=== PATIENT | male | born 1955 | race Caucasian/White ===

== ENCOUNTER 2018-12-06 21:10 | Emergency (ER) | payer OTHER ==
[~2018-12-06] VITALS: Ht 170.2 cm; Wt 76.2 kg
[2018-12-06 21:32] LABS: BASOPHILS ABSOLUTE AUTO 0.12 K/mm3 (0.00-0.23); BASOPHILS PERCENT AUTO 1 % (0-2); EOSINOPHILS ABSOLUTE AUTO 0.28 K/mm3 (0.00-0.68); EOSINOPHILS PERCENT AUTO 2 % (0-6); Hematocrit 35.6 % (37.0-53.0); IMMATURE GRAN ABSOLUTE AUTO 0.05 K/mm3 (0.00-0.10); IMMATURE GRAN PERCENT AUTO 0 % (0-1); LYMPHOCYTES ABSOLUTE AUTO 3.54 K/mm3 (0.84-5.20); LYMPHOCYTES PERCENT AUTO 25 % (21-46); MONOCYTES ABSOLUTE AUTO 1.63 K/mm3 (0.16-1.47); MONOCYTES PERCENT AUTO 11 % (4-13); Mean Corpuscular HGB 21.6 pg (26.0-34.0); Mean Corpuscular HGB Conc 30.9 g/dL (31.5-36.5); Mean Corpuscular Volume 70 fL (80-100); Mean Platelet Volume 10.4 fL (9.1-12.4); NEUTROPHILS ABSOLUTE AUTO 8.74 K/mm3 (1.96-9.15); NEUTROPHILS PERCENT AUTO 61 % (41-73); Platelet Count 523 K/mm3 (150-400); RDW Coefficient Variation 18.2 % (11.7-14.2); RDW Standard Deviation 43.8 fL (35.1-46.3); Red Blood Cell Count 5.09 M/mm3 (4.30-5.90); White Blood Cell Count 14.36 K/mm3 (4.00-11.30)
[2018-12-06 21:48] LABS: Alanine Aminotransfer (ALT/SGP 21 U/L (12-78); Albumin, Blood 4.2 g/dL (3.4-5.0); Albumin/Globulin Ratio 0.9 (0.8-1.8); Alk Phos 161 U/L (50-136); Anion Gap 10 mmol/L (6-16); Aspartate Aminotrans (AST/SGOT 9 U/L (12-37); Bilirubin, Total 0.4 mg/dL (0.1-1.0); Blood Urea Nitrogen 48 mg/dL (8-24); CO2, Blood 25 mmol/L (21-32); Calcium, Blood 9.1 mg/dL (8.5-10.1); Chloride, Blood 93 mmol/L (98-108); Creatinine, Blood 1.37 mg/dL (0.60-1.20); Globulin, Blood 4.5 g/dL (2.2-4.0); Glomerular Filtration Rate 56 (60-); Glucose, Blood 428 mg/dL (70-99); Sodium, Blood 128 mmol/L (136-145); Total Protein, Blood 8.7 g/dL (6.4-8.2); Troponin I <0.015 ng/mL (0.000-0.040)
[2018-12-06] MEDS ORDERED: Novolin R100 UNIT/M SC (23:46)
[2018-12-06] MEDS ORDERED: METF500 PO (23:46)
== END 2018-12-06 23:54 | disposition home or self-care (01) ==
LOC: ER 21:10 → EDBD 21:10 → ER 23:54
PROVIDERS: Emergency Medicine
DX: G89.29 Other chronic pain (principal); M54.2 Cervicalgia; Z88.2 Allergy status to sulfonamides; Z88.8 Allergy status to other drugs, medicaments and biological substances
CPT/HCPCS: 71046; 72040; 80053; 84484; 85025; 93005; 93010; 96374; 99284-25; J1170

== ENCOUNTER 2019-11-25 15:06 | Inpatient (IN) | payer OTHER ==
[~2019-11-25] VITALS: Ht 170.2 cm; Wt 80.9 kg
[~2019-11-25 15:06] MED LIST: METF500 PO; Novolin R100 UNIT/M SC
[2019-11-25 15:51] LABS: BASOPHILS ABSOLUTE AUTO 0.09 K/mm3 (0.00-0.23); BASOPHILS PERCENT AUTO 0 % (0-2); EOSINOPHILS ABSOLUTE AUTO 0.01 K/mm3 (0.00-0.68); EOSINOPHILS PERCENT AUTO 0 % (0-6); Hematocrit 38.1 % (37.0-53.0); Hemoglobin 12.4 g/dL (13.5-17.5); IMMATURE GRAN ABSOLUTE AUTO 0.11 K/mm3 (0.00-0.10); IMMATURE GRAN PERCENT AUTO 1 % (0-1); LYMPHOCYTES ABSOLUTE AUTO 1.77 K/mm3 (0.84-5.20); LYMPHOCYTES PERCENT AUTO 8 % (21-46); MONOCYTES ABSOLUTE AUTO 0.41 K/mm3 (0.16-1.47); MONOCYTES PERCENT AUTO 2 % (4-13); Mean Corpuscular HGB 26.3 pg (26.0-34.0); Mean Corpuscular HGB Conc 32.5 g/dL (31.5-36.5); Mean Corpuscular Volume 81 fL (80-100); Mean Platelet Volume 10.7 fL (9.1-12.4); NEUTROPHILS ABSOLUTE AUTO 19.06 K/mm3 (1.96-9.15); NEUTROPHILS PERCENT AUTO 89 % (41-73); Platelet Count 356 K/mm3 (150-400); RDW Coefficient Variation 16.9 % (11.7-14.2); RDW Standard Deviation 50.1 fL (35.1-46.3); Red Blood Cell Count 4.72 M/mm3 (4.30-5.90); White Blood Cell Count 21.45 K/mm3 (4.00-11.30)
[2019-11-25 16:09] LABS: Alanine Aminotransfer (ALT/SGP 21 U/L (12-78); Albumin, Blood 3.9 g/dL (3.4-5.0); Albumin/Globulin Ratio 0.8 (0.8-1.8); Alk Phos 129 U/L (50-136); Anion Gap 8 mmol/L (6-16); Aspartate Aminotrans (AST/SGOT 20 U/L (12-37); Bilirubin, Total 0.3 mg/dL (0.1-1.0); Blood Urea Nitrogen 17 mg/dL (8-24); Bun/Creatinine Ratio 23.9 (12.0-20.0); CO2, Blood 26 mmol/L (21-32); Calcium, Blood 9.6 mg/dL (8.5-10.1); Chloride, Blood 100 mmol/L (98-108); Creatinine, Blood 0.71 mg/dL (0.60-1.20); Globulin, Blood 4.8 g/dL (2.2-4.0); Glomerular Filtration Rate >60 (60-); Glucose, Blood 188 mg/dL (70-99); Potassium, Blood 3.5 mmol/L (3.5-5.5); Sodium, Blood 134 mmol/L (136-145); Total Protein, Blood 8.7 g/dL (6.4-8.2); Troponin I <0.015 ng/mL (0.000-0.040)
[2019-11-25] MEDS ORDERED: SERT100 PO (20:53)
[2019-11-25] MEDS ORDERED: ALLO100 PO (20:53)
[2019-11-25] MEDS ORDERED: SENN187 PO (20:54)
[2019-11-25] MEDS ORDERED: ATOR20 PO (20:59)
[2019-11-25] MEDS ORDERED: CLON.1 PO (21:00)
[2019-11-25] MEDS ORDERED: OMEP20ER PO (21:01)
[2019-11-25] MEDS ORDERED: NIFE90ER PO (21:01)
[2019-11-25] MEDS ORDERED: PRAM.5 PO (21:02)
[2019-11-25] MEDS ORDERED: LOSA50 PO (21:04)
[2019-11-25] MEDS ORDERED: NOVOLOG100 UNIT/2 SC (21:06)
[2019-11-25] MEDS ORDERED: OZEMPIC1 MG/0.71 SC (21:09)
[2019-11-25] MEDS ORDERED: IBUP800 PO (21:10)
[2019-11-25] MEDS ORDERED: SUBOXONE 8 MG-1 EACH SL (21:11)
[2019-11-25] MEDS ORDERED: HYDHCL25 PO (21:13)
[2019-11-25] MEDS ORDERED: POTA10T PO (21:14)
[2019-11-25] MEDS ORDERED: FURO20 PO ×2 (21:15)
[2019-11-25] MEDS ORDERED: PREG150 PO (21:16)
[2019-11-25] MEDS ORDERED: BASAGLAR K100 UNIT/1 SC (21:18)
[2019-11-25] MEDS ORDERED: ONDA4 PO (21:19)
[2019-11-25] MEDS ORDERED: METF500 PO (21:20)
[2019-11-25] MEDS ORDERED: ASPI81CH PO (21:21)
[2019-11-25] MEDS ORDERED: Metoprolol Tar100 MG PO (21:22)
--- NOTE | 2019-11-26 00:35 | NUR ---
MED FLOOR SUMMARY REPORT RECIEVED FROM APPLIQUER. CONCERNS OF BP WAS EXPLAINED THAT PT IS IN PAIN AND ANXIOUS. THE GOAL WAS TO CONTROL PT PAIN AND ANXIETY W/ DECREASE IN BP. PT ARRIVED TO FLOOR IN OBVIOUS DISCOMFORT. PROVIDER CALLED AND NEW ORDER OF MS AND ATIVAN WAS GIVEN. PT MEDICATED PER ORDER AND HAD SOME RELIEF. PT CONTINUED TO HAVE URGE TO HAVE BM W/ NO PRODUCTION. PT EXPERIENCED DRY HEAVES W/ NO EMESIS. CRITICAL LAB WAS CALLED FOR LATIC INCREASE. PROVIDER CALLED AND NOTED THE INCREASE. PT RECIEVED SEPSIS PROTOCOL FLUIDS IN ER AND STARTED ON NS INFUSION. PT CONTINUED TO HAVE HTN DESPITE PAIN MEDS, ATIVAN AND APRESOLINE. PROVIDER CALLED AND ORDERED PT PLACED ON TELE AND IV LOPRESSOR TO BE GIVEN. PT CONTINUED TO HAVE SBP >200 AND PROVIDER ORDERED PT TRANSFER TO ICU. REPORT CALLED TO Valerie RANDOLPH RN.
--- NOTE | 2019-11-26 01:44 | NUR ---
ASSUMED CARE NOTE: ASSUMED CARE OF PT AT 0034, RECEVIED REPORT FROM [facility] RN. PT WAS TRANSFERED TO ICU DUE TO SBP OVER 200. PT IS ALERT AND ORIENTEDX2, VERY FORGETFUL AT TIMES. FIGITIY IN BED, STATING HE IS IN 10/10 PAIN, GENERAL. PAIN MEDS GIVEN PER ORDER. PT CRYING OUT. PT IS IN SINUS TACH, WITH HR IN THE 120'S. PT ON RA WITH SPO2 94% NITROPRESS STARTED AT 0038, TITRATED UP TO 3.5MCG/KG/MIN AT THIS TIME. SBP AT 198. CALLED REGARDING PAIN LEVEL AND BEHAVIOR. ORDERS GIVEN.
[2019-11-26 01:47] LABS: Source, Urine Voided
[2019-11-26 01:52] LABS: Bilirubin, Urine Neg (Neg); Blood, Urine 3+ (Neg); Glucose Qualitative, Urine 4+ (Neg); Ketones, Urine 2+ (Neg); Leukocyte Esterase, Urine Neg (Neg); Nitrite, Urine Neg (Neg); Protein, Urine 4+ (Neg); Specific Gravity, Urine 1.015 (1.003-1.022); Urobilinogen, Urine NORM (Normal)
[2019-11-26 01:53] LABS: Color, Urine Pale Yellow (P-Yellow)
[2019-11-26 01:54] LABS: Appearance, Urine Clear (Clear)
[2019-11-26 01:59] LABS: Bacteria Rare /hpf; Red Blood Cells, Urine 0-2 /hpf (0-2); Squamous Epithelial Cells Not Seen /hpf (Few); White Blood Cells, Urine Not Seen /hpf (0-5)
[2019-11-26 02:01] LABS: U Amphetamine Screen Not Detected; U Barbituate Screen Not Detected; U Benzodiazapine Screen DETECTED; U Buprenorphine Screen Not Detected; U Cannabinoids Screen Not Detected; U Cocaine Screen Not Detected; U Methadone Screen Not Detected; U Methamphetamine Screen Not Detected; U Opiates Screen DETECTED; U Oxycodone Screen Not Detected; U Phencyclidine Screen Not Detected; U Propoxyphene Screen Not Detected
--- NOTE | 2019-11-26 02:37 | NUR ---
UPDATE: NITROPRESS AT 4.5MCG/KG/MIN, BLOOD PRESSURE SLOWLY COMING DOWN. PT WAS GIVEN MORPHINE EARLIER, GOOD EFFECT, PT RESTING.
--- NOTE | 2019-11-26 04:05 | NUR ---
BP LOWERING, ATTEMPTED TO PLACE NITROPRESS ON SB. HOWEVER, PT BP BEGAN TO CLIMB, TITRATING MED TO EFFECT.
[2019-11-26 04:46] LABS: BASOPHILS ABSOLUTE AUTO 0.06 K/mm3 (0.00-0.23); BASOPHILS PERCENT AUTO 0 % (0-2); EOSINOPHILS PERCENT AUTO 0 % (0-6); Hematocrit 37.8 % (37.0-53.0); Hemoglobin 12.7 g/dL (13.5-17.5); IMMATURE GRAN ABSOLUTE AUTO 0.19 K/mm3 (0.00-0.10); IMMATURE GRAN PERCENT AUTO 1 % (0-1); LYMPHOCYTES ABSOLUTE AUTO 2.61 K/mm3 (0.84-5.20); LYMPHOCYTES PERCENT AUTO 10 % (21-46); MONOCYTES ABSOLUTE AUTO 2.46 K/mm3 (0.16-1.47); MONOCYTES PERCENT AUTO 10 % (4-13); Mean Corpuscular HGB 26.5 pg (26.0-34.0); Mean Corpuscular HGB Conc 33.6 g/dL (31.5-36.5); Mean Corpuscular Volume 79 fL (80-100); NEUTROPHILS ABSOLUTE AUTO 20.18 K/mm3 (1.96-9.15); NEUTROPHILS PERCENT AUTO 79 % (41-73); Platelet Count 356 K/mm3 (150-400); RDW Coefficient Variation 16.7 % (11.7-14.2); RDW Standard Deviation 47.6 fL (35.1-46.3)
[2019-11-26 05:03] LABS: Anion Gap 8 mmol/L (6-16); Blood Urea Nitrogen 19 mg/dL (8-24); Bun/Creatinine Ratio 21.3 (12.0-20.0); CO2, Blood 26 mmol/L (21-32); Calcium, Blood 8.6 mg/dL (8.5-10.1); Chloride, Blood 97 mmol/L (98-108); Creatinine, Blood 0.89 mg/dL (0.60-1.20); Glomerular Filtration Rate >60 (60-); Glucose, Blood 316 mg/dL (70-99); Potassium, Blood 3.8 mmol/L (3.5-5.5); Sodium, Blood 131 mmol/L (136-145)
--- NOTE | 2019-11-26 05:40 | NUR ---
SHIFT SUMMARY: PT ALERT AND ORIENTEDX3, CONTINUES TO BE FORGETFUL AT TIMES. PT ON RA WITH SPO2 AT 93% PT IN SINUS TACH WITH HR IN THE LOW 100'S. HR DECRESES INTO THE 90'S WHEN PAIN MEDS ARE GIVEN. NITROPRESS CURRENTLY RUNNING AT 1MCG/KG/MIN, BP LOWERING, TITRATING MEDICATION TO EFFECT. PT HAS NOT HAD EMESIS SINCE TRANSFER. ZOFRAN GIVEN PRN FOR NAUSEA. PT HAS BEEN C/O 01/12 PAIN, MEDICATED FOR PAIN PER EMAR. NS RUNNING AT 100ML/HR. BED AT LOWEST LEVEL, WILL CONTINUE TO MONITOR PT UNTIL REPORT IS GIVEN TO ONCOMING SHIFT.
--- NOTE | 2019-11-26 09:35 | NUR ---
AM NOTE. PT WAS C/O MULTIPLE SORCES OF PAIN AND NAUSEA. IV MEDS GIVEN WITH RELIEF. PT IS ANXIOUS WITH HX OF CHRONIC PAIN ISSUES FROM INJURIES AND MULTIPLE SURGERIES. NIPRIDE GTT IVT TO ASSIST TILL BP MEDS EFFECTIVE. NOC LEFT AT .8, INC TO 1.2 THEN BACK DOWN TO .4 WITH PO MEDS. HOWERVER BP READINGS ARE LABILE WITH ANXIETY AND MOVING. WILL CONT TO MONITOR.
--- NOTE | 2019-11-26 16:45 | NUR ---
RECEIEVED REPORTNICANOR Alvarado, TRUCK HOPPER. PATIENT TO BE TRANSFERED TO [id number].
--- NOTE | 2019-11-26 17:10 | NUR ---
7070 PT REPORT GIVEN TO ETHEL RN AND PT TO BE TRANSPORTED TO [facility] VIA BED. PT JUST RECENTLY MEDICATED FOR PAIN BUT LOCATION SHIFTED TO SHOULDER AND MILD/MOD. ANXIETY NOTED. PTS VS NOTED. ABX STARTED. CBG TO FOLLOW ON MED FLOOR.
--- NOTE | 2019-11-26 17:31 | NUR ---
PATIENT ARRIVED TO ROOM 342 AT 1720 AND IS ALL SITUATED TO THE ROOM.
--- NOTE | 2019-11-27 05:28 | NUR ---
SHIFT SUMMARY A/O, ABLE TO MAKE NEEDS KNOWN. COOPERATIVE WITH CARE. CALLS AND ANSWERS QUESTIONS APPROPRIATELY. REMAINED IN BED T/O SHIFT; NO ATTEMPTS TO GET UP. C/O PAIN/DISCOMFORT TO MULTIPLE DIFFERENT AREAS; RATED 9-10/10 EACH TIME; MEDICATED Q2 PER EMAR. VERY TEARFUL. FLUIDS CONTINUE TO INFUSE WITHOUT COMPLICATIONS. C/O BEING HUNGRY; EDUCATED ON WHY IT IS NOT A GOOD IDEA TO EAT AT THIS TIME, EXPRESSED KNOWLEDGE. NO ACUTE CHANGES NOTED. VSS/AFEBRILE. BED REAMINS IN LOWEST POSITION. CALL LIGHT AND BELONGINGS WITHIN REACH. WCTM. REPORT TO ONCOMING RN.
[2019-11-27 05:43] LABS: Hematocrit 33.8 % (37.0-53.0); Hemoglobin 11.1 g/dL (13.5-17.5); Mean Corpuscular HGB 26.6 pg (26.0-34.0); Mean Corpuscular HGB Conc 32.8 g/dL (31.5-36.5); Mean Corpuscular Volume 81 fL (80-100); Mean Platelet Volume 11.7 fL (9.1-12.4); Platelet Count 330 K/mm3 (150-400); RDW Coefficient Variation 17.2 % (11.7-14.2); RDW Standard Deviation 50.1 fL (35.1-46.3); Red Blood Cell Count 4.18 M/mm3 (4.30-5.90); White Blood Cell Count 16.03 K/mm3 (4.00-11.30)
[2019-11-27 05:59] LABS: Anion Gap 7 mmol/L (6-16); Blood Urea Nitrogen 17 mg/dL (8-24); Bun/Creatinine Ratio 20.7 (12.0-20.0); CO2, Blood 26 mmol/L (21-32); Calcium, Blood 8.8 mg/dL (8.5-10.1); Chloride, Blood 105 mmol/L (98-108); Creatinine, Blood 0.82 mg/dL (0.60-1.20); Glomerular Filtration Rate >60 (60-); Glucose, Blood 160 mg/dL (70-99); Potassium, Blood 3.5 mmol/L (3.5-5.5); Sodium, Blood 138 mmol/L (136-145)
--- NOTE | 2019-11-27 12:35 | NUR ---
PATIENT WAS UPSET WHEN HE WAS BROUGHT A CLEAR LIQUID DIET FOR LUNCH; HE SAYS DR GALVAN TOLD HIM HE COULD HAVE A REQULAR DIET. I CALLED DR GALVAN AT 1200 TO VERIFY ORDERS AND HE SAID HE WANTED TO KEEP PATIENT ON CLEAR LIQUIDS A LITTLE LONGER TO SEE IF ANY OF THE PATIENTS CONDITIONS/PAIN IMPROVES. I ALSO VERIFIED WITH DR GALVAN THAT HE DID INTEND TO D/C THE IV DILAUDID AND LEAVE ONLY APAP FOR PAIN MANAGEMENT AND HE STATED HE DID. WHEN I INFORMED PATIENT OF THESE THINGS HE WAS VERY UPSET AND DECIDED ON LEAVING AMA. DR GALVAN NOTIFIED VIA TELEPHONE AT 1215; CHARGE NURSE [place] ALSO NOTIFIED. AMA FORM COMPLETED.
== END 2019-11-27 12:29 | disposition left against medical advice (07) | DRG 872 ==
LOC: ER 15:06 → MEDS 19:10 → ICUW 19:10 → MEDS 20:05 → ICUW 11-26 00:32 → MEDS 11-26 17:07
PROVIDERS: Internal Medicine; Physician Assistant; ADMIT Hospitalist
DX: A41.9 Sepsis, unspecified organism (principal); A09 Infectious gastroenteritis and colitis, unspecified; E87.1 Hypo-osmolality and hyponatremia; E11.65 Type 2 diabetes mellitus with hyperglycemia; F41.9 Anxiety disorder, unspecified; G89.29 Other chronic pain; I10 Essential (primary) hypertension; I16.0 Hypertensive urgency; I25.10 Atherosclerotic heart disease of native coronary artery without angina pectoris; M54.2 Cervicalgia; R65.20 Severe sepsis without septic shock; Z76.5 Malingerer [conscious simulation]; Z95.1 Presence of aortocoronary bypass graft; Z96.652 Presence of left artificial knee joint; Z87.891 Personal history of nicotine dependence; Z79.4 Long term (current) use of insulin; Z53.29 Procedure and treatment not carried out because of patient's decision for other reasons
CPT/HCPCS: 36415; 71046; 74177; 80048; 80053; 81001; 82947; 83605; 83690; 83880; 84484; 85025; 85027; 87040; 93005; 93010; 94762; 96365-59; 96375; 96376; 99285-25; A9270; A9270-GY; J0360; J0744; J1170; J1200; J1956; J2060; J2270; J2405; J2550; J2765; J7030; J7060; J7120; Q9967

== ENCOUNTER 2024-08-07 13:48 | Inpatient (IN) | payer OTHER ==
[~2024-08-07] VITALS: Ht 170.2 cm; Wt 78.5 kg
[2024-08-07] VITALS (8 sets, daily range): BP systolic 131–190; BP diastolic 82–109
[~2024-08-07 13:48] MED LIST changes: +ALLO100 PO; +ASPI81CH PO; +ATOR20 PO; +BASAGLAR K100 UNIT/1 SC; +CLON.1 PO; +FURO20 PO; +HYDHCL25 PO; +IBUP800 PO; +LOSA50 PO; +Metoprolol Tar100 MG PO; +NIFE90ER PO; +NOVOLOG100 UNIT/2 SC; +OMEP20ER PO; +ONDA4 PO; +OZEMPIC1 MG/0.71 SC; +POTA10T PO; +PRAM.125 PO; +PREG150 PO; +SENN187 PO; +SERT100 PO; +SUBOXONE 8 MG-1 EACH SL
[2024-08-07 14:54] LABS: BASOPHILS ABSOLUTE AUTO 0.14 K/mm3 (0.00-0.23); BASOPHILS PERCENT AUTO 1 % (0-2); EOSINOPHILS ABSOLUTE AUTO 0.34 K/mm3 (0.00-0.68); EOSINOPHILS PERCENT AUTO 3 % (0-6); Hematocrit 33.7 % (37.0-53.0); Hemoglobin 10.9 g/dL (13.5-17.5); IMMATURE GRAN ABSOLUTE AUTO 0.04 K/mm3 (0.00-0.10); IMMATURE GRAN PERCENT AUTO 0 % (0-1); LYMPHOCYTES ABSOLUTE AUTO 3.18 K/mm3 (0.84-5.20); LYMPHOCYTES PERCENT AUTO 24 % (21-46); MONOCYTES ABSOLUTE AUTO 1.58 K/mm3 (0.16-1.47); MONOCYTES PERCENT AUTO 12 % (4-13); Mean Corpuscular HGB 27.8 pg (26.0-34.0); Mean Corpuscular HGB Conc 32.3 g/dL (31.5-36.5); Mean Corpuscular Volume 86 fL (80-100); Mean Platelet Volume 11.5 fL (9.1-12.4); NEUTROPHILS PERCENT AUTO 60 % (41-73); Platelet Count 399 K/mm3 (150-400); RDW Standard Deviation 56.1 fL (35.1-46.3); Red Blood Cell Count 3.92 M/mm3 (4.30-5.90); White Blood Cell Count 13.28 K/mm3 (4.00-11.30)
[2024-08-07 15:21] LABS: Albumin, Blood 3.3 g/dL (3.4-5.0); Albumin/Globulin Ratio 0.8 (0.8-1.8); Bilirubin, Total 0.5 mg/dL (0.1-1.0); Bun/Creatinine Ratio 26.9 (12.0-20.0); Calcium, Blood 9.5 mg/dL (8.5-10.1); Creatinine, Blood 0.74 mg/dL (0.60-1.20); Potassium, Blood 4.1 mmol/L (3.5-5.5); Total Protein, Blood 7.3 g/dL (6.4-8.2)
[2024-08-07] MEDS ORDERED: Aspirin 325 MG Tab PO ONE (15:50)
[2024-08-07] MEDS ORDERED: OxyCODONE HCL 5 MG TAB PO ONE (17:15)
[2024-08-07] MEDS ORDERED: Nitroglycerin 0.4 MG SUBL SL PRN (17:40)
[2024-08-07] MEDS ORDERED: Clopidogrel Bisulfate 300 MG TABLET PO ONE (17:45)
[2024-08-07] MEDS ORDERED: Ondansetron HCl 2 MG / ML 2ML Vial IV PRN (17:50)
[2024-08-07] MEDS ORDERED: Morphine Sulfate 4 MG/1 ML Injection IV PRN ×2 (17:50→20:10)
[2024-08-07] MEDS ORDERED: Acetaminophen 325 MG TABLET PO PRN (17:50)
[2024-08-07] MEDS ORDERED: Sennosides 8.6 MG Tab PO PRN (17:55)
[2024-08-07] MEDS ORDERED: OxyCODONE HCL 5 MG TAB PO PRN (17:55)
[2024-08-07] MEDS ORDERED: Aspirin 81 MG Chew PO SCH (18:00)
[2024-08-07] MEDS ORDERED: Losartan Potassium 50 MG Tab PO SCH (18:00)
[2024-08-07] MEDS ORDERED: Furosemide 10 MG/ML 4ML Vial IV SCH (18:00)
[2024-08-07] MEDS ORDERED: Insulin Regular 100 UNIT/ML 10ML Vial SC SCH (18:00)
[2024-08-07] MEDS ORDERED: Dose Adjust by Pharmacy XX STA (20:00)
[2024-08-07] MEDS ORDERED: ACET500 PO (20:02)
[2024-08-07] MEDS ORDERED: Heparin Sodium 5000 Units/ML 1ML MDV IV ONE (20:05)
[2024-08-07] MEDS ORDERED: Heparin Sodium,Porcine/0.5 NS 500 ML IV SCH (20:05)
[2024-08-07] MEDS ORDERED: GLUCOSE PO (20:15)
[2024-08-07 20:18] LABS: Anti-Xa UFH, PHA Monitoring <0.10 IU/mL; International Normalized Ratio 0.99; Prothrombin Time Results 10.6 Sec (9.7-11.5)
[2024-08-07] MEDS ORDERED: LIDO700A20 TOP (20:24)
[2024-08-07] MEDS ORDERED: NARCAN4 M1 (20:30)
[2024-08-07] MEDS ORDERED: OXYC5 PO (20:36)
[2024-08-07 20:42] LABS: CHOL/HDL RATIO 2.8; Cholesterol 131 mg/dL (50-200); HDL Cholesterol 46 mg/dL (>39); LDL/HDL RATIO 1.6; Low Density Lipoprotein Chol 72 mg/dL (0-110); Magnesium, Blood 1.7 mg/dL (1.6-2.4); Triglycerides 67 mg/dL (30-160); Very Low Density Lipoprot Chol 13 mg/dL (6-32)
[2024-08-07] MEDS ORDERED: WEGOVY0.5 MG/0.5 SC (20:43)
[2024-08-07] MEDS ORDERED: ASCORBIC ACID500 MG PO (20:46)
[2024-08-07] MEDS ORDERED: Atorvastatin 40 MG Tab PO SCH (21:00)
[2024-08-07] MEDS ORDERED: Metoprolol Tartrate 50 MG Tab PO SCH (21:00)
[2024-08-08] VITALS (8 sets, daily range): BP systolic 163–188; BP diastolic 67–107
[2024-08-08] MEDS ORDERED: HyDROXyzine HCl 10 MG Tab PO ONE (01:00)
[2024-08-08] MEDS ORDERED: HyDROXyzine HCl 25 MG Tab PO ONE ×2 (01:10→21:30)
[2024-08-08] MEDS ORDERED: Dose Adjust by Pharmacy XX STA (04:17)
[2024-08-08] MEDS ORDERED: Heparin Sodium 5000 Units/ML 1ML MDV IV ONE (04:20)
--- NOTE | 2024-08-08 06:57 | NUR ---
PT AOX4, INDEPENDENT AT BESIDE WITH URINAL. PT IS ABLE TO USE CALL LIGHT AND MAKE NEEDS KNOWN. PT CHEST HAS REDUCED TO 4/10 BUT IS STILL PRESENT. PT REFUSED MORE NTG D/T HEADACHE HE HAS EXPERIENCED FROM TAKING IT IN THE PAST. PT HEART RATE/RHYTHM CONTINUE TO BE WNL. PT DOES CONTINUE HAVE HTN. PT HAS BEEN MADE NPO AT MIDNIGHT FOR PROCEDURE TODAY. PT HAS BEEN ON HEPARIN AND TOLERATING THAT WELL. NO S/S BLEEDING/BRUISING. PT WAS MEDICATED FOR CHEST PAIN AT BEGINNING OF SHIFT WITH MORPHINE AND WAS MEDICATED WITH MORPHINE X1 FOR RT SHOULDER PAIN DURING THIS MILLSTONE CLEANER WITH GOOD EFFECT.
[2024-08-08 07:17] LABS: BASOPHILS ABSOLUTE AUTO 0.13 K/mm3 (0.00-0.23); BASOPHILS PERCENT AUTO 1 % (0-2); EOSINOPHILS ABSOLUTE AUTO 0.64 K/mm3 (0.00-0.68); EOSINOPHILS PERCENT AUTO 4 % (0-6); Hematocrit 34.1 % (37.0-53.0); Hemoglobin 11.1 g/dL (13.5-17.5); IMMATURE GRAN ABSOLUTE AUTO 0.04 K/mm3 (0.00-0.10); IMMATURE GRAN PERCENT AUTO 0 % (0-1); LYMPHOCYTES ABSOLUTE AUTO 6.66 K/mm3 (0.84-5.20); LYMPHOCYTES PERCENT AUTO 41 % (21-46); MONOCYTES ABSOLUTE AUTO 2.11 K/mm3 (0.16-1.47); MONOCYTES PERCENT AUTO 13 % (4-13); Mean Corpuscular HGB 27.8 pg (26.0-34.0); Mean Corpuscular HGB Conc 32.6 g/dL (31.5-36.5); Mean Corpuscular Volume 86 fL (80-100); Mean Platelet Volume 11.9 fL (9.1-12.4); NEUTROPHILS ABSOLUTE AUTO 6.49 K/mm3 (1.96-9.15); NEUTROPHILS PERCENT AUTO 41 % (41-73); Platelet Count 390 K/mm3 (150-400); RDW Coefficient Variation 17.6 % (11.7-14.2); RDW Standard Deviation 54.2 fL (35.1-46.3); Red Blood Cell Count 3.99 M/mm3 (4.30-5.90); White Blood Cell Count 16.07 K/mm3 (4.00-11.30)
[2024-08-08 07:34] LABS: Bun/Creatinine Ratio 32.3 (12.0-20.0); Creatinine, Blood 0.71 mg/dL (0.60-1.20); Potassium, Blood 3.5 mmol/L (3.5-5.5)
[2024-08-08 07:37] LABS: BASOPHILS PERCENT MAN 0 % (0-2); EOSINOPHILS PERCENT MAN 5 % (0-6); LYMPHOCYTES ABSOLUTE MAN 7.71 K/mm3 (0.84-5.20); LYMPHOCYTES PERCENT MAN 48 % (21-46); MONOCYTES ABSOLUTE MAN 1.12 K/mm3 (0.16-1.47); MONOCYTES PERCENT MAN 7 % (4-13); NEUTROPHILS ABSOLUTE MAN 6.42 K/mm3 (1.96-9.15); SEG NEUTROPHILS PERCENT MAN 40 % (41-73); TOTAL CELLS COUNTED 100
[2024-08-08] MEDS ORDERED: Verapamil HCL 2.5 MG/ML 2ML Injection ONE (08:10)
[2024-08-08] MEDS ORDERED: NS 1,000 ML IV ONE ×2 (08:11→08:12)
[2024-08-08] MEDS ORDERED: Nitroglycerin 2 MG/20 ML BTL ONE (08:11)
[2024-08-08] MEDS ORDERED: NS 250 ML IV ONE (08:11)
[2024-08-08] MEDS ORDERED: Heparin Sodium 1000 Units/ML 10ML MDV ONE ×3 (08:11→10:43)
[2024-08-08] MEDS ORDERED: NiCARdipine HCL 1,000 MCG/5 ML SYR ONE (08:21)
[2024-08-08] MEDS ORDERED: FentaNYL Citrate 50 MCG/ML 2 ML Injection ONE ×4 (08:51→10:38)
[2024-08-08] MEDS ORDERED: Midazolam HCl 1MG / ML 2ML Vial ONE (08:51)
[2024-08-08] MEDS ORDERED: Clopidogrel Bisulfate 75 MG Tab PO SCH (09:00)
[2024-08-08] MEDS ORDERED: NS 500 ML IV ONE ×2 (09:35→10:43)
[2024-08-08] MEDS ORDERED: Clopidogrel Bisulfate 300 MG TABLET ONE (09:54)
[2024-08-08] MEDS ORDERED: Spironolactone 25 MG Tab PO SCH (11:30)
[2024-08-08] MEDS ORDERED: HydrALAZINE HCl 20 MG / ML 1ML Vial IV PRN ×2 (11:30→14:35)
[2024-08-08] MEDS ORDERED: NS 1,000 ML IV SCH (11:30)
[2024-08-08] MEDS ORDERED: HydrALAZINE HCl 20 MG / ML 1ML Vial IV ONE (15:00)
[2024-08-08] MEDS ORDERED: Insulin Glargine-Yfgn 100 Unit/mL 3 ML SYR SC SCH (16:00)
[2024-08-08] MEDS ORDERED: Insulin Human Lispro 100 Units/ML 3ML Syringe SC SCH (16:30)
--- NOTE | 2024-08-08 19:45 | NUR ---
SHIFT SUMMARY PATIENT AOX4 ABLE TO MAKE NEEDS KNOWN. HE COMPLAINED OF CHEST PAIN BEFORE THE NURSERY RN THE WAS IMPROVED WITH PRN PAIN MEDS. HIS BLOOD PRESSURE WAS ELEVATED AND THE HOSPITALIST WAS AWARE. HE WENT TO NURSERY RN AND HAD 2 STENTS PLACED AND CAME BACK WITH TR BANDS ON BOTH WRISTS. THE WERE REMOVED PER ORDER WITH NO HEMATOMA OR BRUISING. BOTH DRESSING ARE CLEAN DRY INTACT. HIS PRESSURE STILL HIGH AFTER NURSERY RN AND THE HOSPITALIST WAS CALLED AND ORDERED ADDITIONL BLOOD PRESSURE MEDICATION. THE PATIENT CHEST PAIN DID IMPROVE POST CATH BUT HE DOES COMPLAIN OF GENERALIZED PAIN WANTING HIS DOSE OF MORPHINE INCREASED. REPORT GIVEN AND ALL QUESTIONED ANSWERED.
[2024-08-08] MEDS ORDERED: Atorvastatin 40 MG Tab PO SCH (21:00)
[2024-08-08] MEDS ORDERED: Pregabalin 50 MG Capsule PO SCH (21:00)
[2024-08-09 03:23] VITALS: BP 185/75
[2024-08-09 03:54] VITALS: BP 141/63
[2024-08-09 04:18] LABS: BASOPHILS ABSOLUTE AUTO 0.15 K/mm3 (0.00-0.23); BASOPHILS PERCENT AUTO 1 % (0-2); EOSINOPHILS ABSOLUTE AUTO 0.46 K/mm3 (0.00-0.68); EOSINOPHILS PERCENT AUTO 3 % (0-6); Hematocrit 34.2 % (37.0-53.0); Hemoglobin 11.3 g/dL (13.5-17.5); IMMATURE GRAN ABSOLUTE AUTO 0.04 K/mm3 (0.00-0.10); IMMATURE GRAN PERCENT AUTO 0 % (0-1); LYMPHOCYTES ABSOLUTE AUTO 4.19 K/mm3 (0.84-5.20); LYMPHOCYTES PERCENT AUTO 25 % (21-46); MONOCYTES ABSOLUTE AUTO 2.52 K/mm3 (0.16-1.47); MONOCYTES PERCENT AUTO 15 % (4-13); Mean Corpuscular HGB 27.4 pg (26.0-34.0); Mean Corpuscular Volume 83 fL (80-100); Mean Platelet Volume 11.4 fL (9.1-12.4); NEUTROPHILS ABSOLUTE AUTO 9.71 K/mm3 (1.96-9.15); NEUTROPHILS PERCENT AUTO 57 % (41-73); Platelet Count 431 K/mm3 (150-400); RDW Coefficient Variation 17.2 % (11.7-14.2); RDW Standard Deviation 51.6 fL (35.1-46.3); Red Blood Cell Count 4.13 M/mm3 (4.30-5.90); White Blood Cell Count 17.07 K/mm3 (4.00-11.30)
[2024-08-09 04:33] LABS: Bun/Creatinine Ratio 35.4 (12.0-20.0); Creatinine, Blood 0.76 mg/dL (0.60-1.20); Magnesium, Blood 1.7 mg/dL (1.6-2.4); Potassium, Blood 4.1 mmol/L (3.5-5.5)
--- NOTE | 2024-08-09 05:26 | NUR ---
SHIFT SUMMARY A&O X4, ABLE TO MAKE NEEDS KNOWN, MOVING ALL EXTREMITIES WITH PURPOSE, USING CALL LIGHT APPROPRIATELY, PT REPOSITIONING SELF IN BED, OBEYS COMMANDS. SPO2 GREATER THAN 90% ON RA, LUNGS SOUND CLEAR T/O, NO SIGNS OF RESPIRATORY DISTRESS NOTED T/O THIS SHIFT. CONTINUOUS TELE MONITORING, SINUS 70-80 S, PULSES PRESENT T/O, BP ELEVATE/ REQUIRING ONE PRN DOSE OF HYDRALAZINE THIS SHIFT, CAP REFILL WNL. BOWEL TONES PRESENT IN ALL 4Q, PT DENIES FEELINGS OF NAUSEA OR CONSTIPATION. PT VOIDING IND. LEFT RADIAL SITE HAS SMALL AMOUNT OF OOZING THAT REMAINS UNCHANGED FROM THE START OF THIS SHIFT, SITE IS SOFT WITHOUT SIGHTS OF HEMATOMA. RIGHT RADIAL SITE IS FREE OF OOZING/REDNESS/SIGNS OF HEMATOMA. PT REPORTING PAIN ALL OVER , MEDICATED PER EMAR. BED LOWEST POSITION, CALL LIGHT IN REACH, AWAITING TO GIVE REPORT TO ONCOMING RN.
[2024-08-09 07:52] VITALS: BP 148/73
[2024-08-09] MEDS ORDERED: Empagliflozin 10 MG TAB PO SCH (09:00)
[2024-08-09] MEDS ORDERED: Sertraline HCl 100 MG Tab PO SCH (09:00)
[2024-08-09] MEDS ORDERED: Lidocaine 4% 1 Patch TOP SCH (09:00)
[2024-08-09 12:18] VITALS: BP 145/72
[2024-08-09] MEDS ORDERED: CLOP75 PO (12:37)
[2024-08-09] MEDS ORDERED: SPIR25 PO (12:38)
[2024-08-09] MEDS ORDERED: JARDIANCE10 MG PO (12:38)
[2024-08-09] MEDS ORDERED: INSULIN AS100 UNIT/6 SC (12:49)
--- NOTE | 2024-08-09 14:09 | NUR ---
DISCHARGE SUMMARY PT A&OX4. VSS. [facility] REQUEST. [facility] DISCHARGE PAPERWORK REVIEWED WITH PT AND SPOUSE. PT VERBALIZED UNDERSTANDING OF NEED TO SCHEDULE FOLLOW UP APPTS. PT VERBALIZED UNDERSTANDING OF POST STENT/RADIAL SITE CARE/ACTIVITY RESTRICTIONS. DISCHARGE MEDICATION REVIEWED W/ PT AND SPOUSE. BOTH VERBALIZED UNDERSTANDING OF MEASURING INSULIN AGAINST LOW SLIDING SCALE TO PREVENT HYPOGLYCEMIC EPISODES. IV'S REMOVED. TELEMETRY REMOVED. PT HELPED DRESS. WHEELED TO PRIVATE VEHICLE W/ PERSONAL BELONGINGS AND STENT CARDS.
== END 2024-08-09 13:20 | disposition home or self-care (01) | DRG 322 ==
LOC: ER 13:48 → PCU 13:49
PROVIDERS: Emergency Medicine; ADMIT Family Medicine
PROC: 027135Z Dilation of Coronary Artery, Two Arteries with Two Drug-eluting Intraluminal Devices, Percutaneous Approach (ICD-10-PCS; principal; 2024-08-08)
PROC: B2111ZZ Fluoroscopy of Multiple Coronary Arteries using Low Osmolar Contrast (ICD-10-PCS; 2024-08-08)
PROC: B2131ZZ Fluoroscopy of Multiple Coronary Artery Bypass Grafts using Low Osmolar Contrast (ICD-10-PCS; 2024-08-08)
PROC: B2181ZZ Fluoroscopy of Left Internal Mammary Bypass Graft using Low Osmolar Contrast (ICD-10-PCS; 2024-08-08)
DX: I21.4 Non-ST elevation (NSTEMI) myocardial infarction (principal); I25.810 Atherosclerosis of coronary artery bypass graft(s) without angina pectoris; I10 Essential (primary) hypertension; E11.9 Type 2 diabetes mellitus without complications; G89.4 Chronic pain syndrome; E78.5 Hyperlipidemia, unspecified; I25.10 Atherosclerotic heart disease of native coronary artery without angina pectoris; R79.89 Other specified abnormal findings of blood chemistry; Z88.2 Allergy status to sulfonamides; Z88.8 Allergy status to other drugs, medicaments and biological substances; Z79.4 Long term (current) use of insulin; Z79.84 Long term (current) use of oral hypoglycemic drugs; Z79.85 Long-term (current) use of injectable non-insulin antidiabetic drugs; Z79.82 Long term (current) use of aspirin; Z87.891 Personal history of nicotine dependence; Z95.1 Presence of aortocoronary bypass graft; Z79.891 Long term (current) use of opiate analgesic
CPT/HCPCS: 36415; 71046; 76937; 80048; 80053; 80061; 82947; 83036; 83735; 83880; 84443; 84484; 85025; 85347; 85520; 85610; 93005; 93010; 93306; 93455; 94762; 96374; 96375; 96376; 99152; 99153; 99285-25; A9270; C1725; C1769; C1874; C1887; C1894; C9600; G0378; J0360; J1644; J1815; J1938; J2250; J2270; J3010; J7030; J7040; J7050; Q9967

== ENCOUNTER 2024-09-05 21:59 | Emergency (ER) | payer OTHER ==
[~2024-09-05] VITALS: Ht 170.2 cm; Wt 72.6 kg
[~2024-09-05 21:59] MED LIST changes: +ACET500 PO; +ASCORBIC ACID500 MG PO; +CLOP75 PO; +GLUCOSE PO; +INSULIN AS100 UNIT/6 SC; +JARDIANCE10 MG PO; +LIDO700A20 TOP; +NARCAN4 M1; +OXYC5 PO; +SPIR25 PO; +WEGOVY0.5 MG/0.5 SC
[2024-09-05 22:13] VITALS: BP 113/66
[2024-09-05] MEDS ORDERED: Diphth,Pertuss(Acell),Tet Vac 0.5 ML VIAL IM ONE (22:25)
[2024-09-05] MEDS ORDERED: Fluorescein Sod 1MG Opth Strips LEFTEYE ONE (22:25)
[2024-09-05] MEDS ORDERED: Tetracaine HCl/Pf 0.5% Opth Soln 4 ml LEFTEYE ONE (22:25)
[2024-09-05] MEDS ORDERED: Erythromycin 0.5% Opth Oint 1 gm LEFTEYE ONE (22:50)
[2024-09-05] MEDS ORDERED: Ofloxacin 0.3% Opth Soln 5 ML LEFTEYE ONE (22:50)
[2024-09-05] MEDS ORDERED: OCUFLOX510 LEFTEYE (22:52)
[2024-09-05] MEDS ORDERED: ERYT1OIN LEFTEYE (22:52)
== END 2024-09-05 23:24 | disposition home or self-care (01) ==
LOC: ER 21:59
DX: S05.02XA Injury of conjunctiva and corneal abrasion without foreign body, left eye, initial encounter (principal); Z88.2 Allergy status to sulfonamides; Z88.8 Allergy status to other drugs, medicaments and biological substances; Z79.85 Long-term (current) use of injectable non-insulin antidiabetic drugs; Z79.84 Long term (current) use of oral hypoglycemic drugs; Z79.82 Long term (current) use of aspirin; Z79.4 Long term (current) use of insulin; Z79.899 Other long term (current) drug therapy; W22.8XXA Striking against or struck by other objects, initial encounter; Y93.H2 Activity, gardening and landscaping
CPT/HCPCS: 90471; 90715; 99282-25; A9270